=== PATIENT | female | born 1980 | race African-American/Black ===

== ENCOUNTER → 2016-11-01 | Outpatient (CLI) | payer OTHER ==
--- NOTE | 2016-11-01 12:49 | RAD ---
Indication pain. Grayscale color Doppler and spectral imaging was performed. Examination was targeted to the veins of the left lower extremity. The common femoral, femoral and popliteal veins appeared normal. No thrombus was seen. Visualized calf veins appeared unremarkable. The right common femoral vein appeared normal. IMPRESSION: Negative left lower extremity venous analysis for DVT
== END | disposition home or self-care (01) ==
LOC: US 11:44
PROVIDERS: ATTEND Family Medicine
DX: M79.672 Pain in left foot (principal); R60.0 Localized edema; M79.89 Other specified soft tissue disorders
CPT/HCPCS: 93971

== ENCOUNTER 2018-02-02 23:38 | Emergency (ER) | payer OTHER ==
[~2018-02-02] VITALS: Ht 152.4 cm; Wt 106.1 kg
[2018-02-03] MEDS ORDERED: IV NORMAL SALINE 1,000ML 1,000 ML IV SCH (00:28)
[2018-02-03] MEDS ORDERED: KETOROLAC 30 MG/ML VIAL. IV ONE (00:30)
[2018-02-03] MEDS ORDERED: PROCHLORPERAZINE 10 MG/2 ML VIAL. IV ONE (00:30)
[2018-02-03] MEDS ORDERED: diphenhydrAMINE 50 MG/ML VIAL IVP ONE (00:30)
[2018-02-03 01:53] LABS: BASO # 0.1 x10^3/uL (0.0-0.2); BASO % 1 % (0-3); EOS # 0.1 x10^3/uL (0.0-0.7); EOS % 1 % (0-3); HEMATOCRIT 36.6 % (36.0-47.0); HEMOGLOBIN 12.1 g/dL (12.0-15.5); LYMPH # 2.3 x10^3/uL (1.0-4.8); LYMPH % 43 % (24-48); MEAN CORPUSCULAR HEMOGLOBIN 27 pg (25-35); MEAN CORPUSCULAR HGB CONC 33 g/dL (31-37); MEAN CORPUSCULAR VOLUME 82 fL (79-100); MONO # 0.7 x10^3/uL (0.0-1.1); MONO % 13 % (0-9); NEUT # 2.2 x10^3uL (1.8-7.7); NEUT % 42 % (31-73); PLATELET COUNT 310 x10^3/uL (140-400); RED BLOOD COUNT 4.44 x10^6/uL (3.50-5.40); RED CELL DISTRIBUTION WIDTH 14.6 % (11.5-14.5); WHITE BLOOD COUNT 5.4 x10^3/uL (4.0-11.0)
[2018-02-03 01:57] LABS: BACTERIA,URINE 0 /HPF (0-FEW); BILIRUBIN,URINE NEG (NEG); CLARITY,URINE CLEAR; COLOR,URINE YELLOW; GLUCOSE,URINE NEG (NEG); NITRITE,URINE NEG (NEG); RBC,URINE 0 /HPF (0-2); SQUAMOUS EPITHELIAL CELL,UR FEW /LPF; UROBILINOGEN,URINE 1 mg/dL (0.2 mg/dL); WBC,URINE OCC /HPF (0-4)
[2018-02-03 01:59] LABS: CALCIUM 8.4 mg/dL (8.5-10.1); GFR 76.3; MAGNESIUM 1.8 mg/dL (1.8-2.4)
[2018-02-03 02:30] VITALS: BP 138/94
[2018-02-03] MEDS ORDERED: BUTA1TAB23 PO (02:36)
--- NOTE | 2018-02-03 02:36 | PHYS DOC ---
Adult General Chief Complaint Chief Complaint: HEADACHE HPI HPI Patient is a 37 year old female who presents with complaint of headache and dizziness. Patient states that her headache started approximately 2 days ago. Patient states that she has history of migraine headaches and states her symptoms feel similar to previous migraine headaches. Patient states however she has been having slight increase and lightheadedness over the past day. Patient denies any associated fever. Patient states that she has been taking Excedrin Migraine at home with improvement symptoms. The patient states that her headache is still present but is better today compared to onset. Patient however does continue to have lightheadedness. Patient denies any other significant past medical history. Patient came to the emergency department for further evaluation and treatment of her headache and dizziness. Review of Systems Review of Systems Constitutional: Denies fever or chills [] Eyes: Denies change in visual acuity, redness, or eye pain [] HENT: Denies nasal congestion or sore throat [] Respiratory: Denies cough or shortness of breath [] Cardiovascular: Denies chest pain or edema[] GI: Denies abdominal pain, nausea, vomiting, bloody stools or diarrhea [] : Denies dysuria or hematuria [] Musculoskeletal: Denies back pain or joint pain [] Integument: Denies rash or skin lesions [] Neurologic: Headache, lightheadedness, denies focal weakness or sensory changes [] All other systems were reviewed and found to be within normal limits, except as documented in this note. Current Medications Current Medications Current Medications Medications (Trade) Dose Ordered Sig/Prakash Start Time Stop Time Status Last Admin Dose Admin Diphenhydramine HCl (Benadryl) 25 mg 1X ONCE 02/03/18 00:30 02/03/18 02:02 DC 02/03/18 01:40 25 MG Ketorolac Tromethamine (Toradol 30mg Vial) 30 mg 1X ONCE 02/03/18 00:30 02/03/18 02:02 DC 02/03/18 01:40 30 MG Prochlorperazine Edisylate (Compazine) 10 mg 1X ONCE 02/03/18 00:30 02/03/18 02:02 DC 02/03/18 01:40 10 MG Sodium Chloride 1,000 ml @ 1,000 mls/hr Q1H 02/03/18 00:28 02/03/18 02:02 DC 02/03/18 01:41 1,000 MLS/HR Allergies Allergies Allergies Coded Allergies Type Severity Reaction Last Updated Verified No Known Drug Allergies 02/03/18 No Physical Exam Physical Exam Constitutional: Alert, afebrile, appears in mild discomfort. [] HENT: Normocephalic, atraumatic, bilateral external ears normal, oropharynx moist, no oral exudates, nose normal. [] Eyes: PERRLA, EOMI, conjunctiva normal, no discharge. [] Neck: Normal range of motion, no tenderness, supple, no stridor. [] Cardiovascular:Heart rate regular rhythm, no murmur [] Lungs & Thorax: Bilateral breath sounds clear to auscultation [] Abdomen: Bowel sounds normal, soft, no tenderness, no masses, no pulsatile masses. [] Skin: Warm, dry, no erythema, no rash. [] Back: No tenderness, no CVA tenderness. [] Extremities: No tenderness, no cyanosis, no clubbing, ROM intact, no edema. [] Neurologic: Alert and oriented X 3, normal motor function, normal sensory function, no focal deficits noted. [] Current Patient Data Vital Signs Vital Signs Date Time Temp Pulse Resp B/P (MAP) Pulse Ox O2 Delivery O2 Flow Rate FiO2 02/03/18 01:15 97.7 68 18 98 Room Air Lab Results Laboratory Tests Test 02/03/18 00:05 02/03/18 00:40 02/03/18 01:20 Urine Collection Type Unknown Urine Color Yellow Urine Clarity Clear Urine pH 7.5 Urine Specific [place] 1.020 Urine Protein Neg (NEG-TRACE) Urine Glucose (UA) Neg mg/dL (NEG) Urine Ketones (Stick) Neg mg/dL (NEG) Urine Blood Neg (NEG) Urine Nitrite Neg (NEG) Urine Bilirubin Neg (NEG) Urine Urobilinogen Dipstick 1 mg/dL (0.2 mg/dL) Urine Leukocyte Esterase Neg (NEG) Urine RBC 0 /HPF (0-2) Urine WBC Occ /HPF (0-4) Urine Squamous Epithelial Cells Few /LPF Urine Bacteria 0 /HPF (0-FEW) POC Urine HCG, Qualitative hcg negative (Negative) White Blood Count 5.4 x10^3/uL (4.0-11.0) Red Blood Count 4.44 x10^6/uL (3.50-5.40) Hemoglobin 12.1 g/dL (12.0-15.5) Hematocrit 36.6 % (36.0-47.0) Mean Corpuscular Volume 82 fL (79-100) Mean Corpuscular Hemoglobin 27 pg (25-35) Mean Corpuscular Hemoglobin Concent 33 g/dL (31-37) Red Cell Distribution Width 14.6 % (11.5-14.5) H Platelet Count 310 x10^3/uL (140-400) Neutrophils (%) (Auto) 42 % (31-73) Lymphocytes (%) (Auto) 43 % (24-48) Monocytes (%) (Auto) 13 % (0-9) H Eosinophils (%) (Auto) 1 % (0-3) Basophils (%) (Auto) 1 % (0-3) Neutrophils # (Auto) 2.2 x10^3uL (1.8-7.7) Lymphocytes # (Auto) 2.3 x10^3/uL (1.0-4.8) Monocytes # (Auto) 0.7 x10^3/uL (0.0-1.1) Eosinophils # (Auto) 0.1 x10^3/uL (0.0-0.7) Basophils # (Auto) 0.1 x10^3/uL (0.0-0.2) Sodium Level 140 mmol/L (136-145) Potassium Level 4.0 mmol/L (3.5-5.1) Chloride Level 106 mmol/L (98-107) Carbon Dioxide Level 26 mmol/L (21-32) Anion Gap 8 (6-14) Blood Urea Nitrogen 15 mg/dL (7-20) Creatinine 1.0 mg/dL (0.6-1.0) Estimated GFR (Cockcroft-Gault) 76.3 Glucose Level 102 mg/dL (70-99) H Calcium Level 8.4 mg/dL (8.5-10.1) L Magnesium Level 1.8 mg/dL (1.8-2.4) EKG EKG Not performed[] Radiology/Procedures Radiology/Procedures Not performed[] Course & Med Decision Making Course & Med Decision Making Pertinent Labs and Imaging studies reviewed. (See chart for details) The patient's exam is benign. The patient was given IV fluids, Compazine, Toradol, and Benadryl with significant improvement symptoms. The patient is appropriate for outpatient follow-up. Advised follow-up with Dr. Newsome in 2 days for reevaluation and return to emergency department for any worsening symptoms. Patient was understanding and in agreement with treatment plan. Dragon Disclaimer Dragon Disclaimer This electronic medical record was generated, in whole or in part, using a voice recognition dictation system. Departure Departure: Impression: Primary Impression: Migraine headache Disposition: HOME, SELF-CARE Condition: IMPROVED Referrals: DANIS NEWSOME MD (PCP) Patient Instructions: Migraine Headache Additional Instructions: Follow-up with Dr. Newsome in the next 2 days for reevaluation. Return to the emergency department for any worsening symptoms. Scripts Butalb/Acetaminophen/Caffeine ([id number] 50-325-40) 1 Each Tablet 1-2 EACH PO Q4-6HRS PRN for HEADACHE, #30 TAB Prov: CAIT GREENE MD 02/03/18 Problem Qualifiers Primary Impression: Migraine headache Migraine type: without aura Status migrainosus presence: without status migrainosus Intractability: not intractable Qualified Codes: G43.009 - Migraine without aura, not intractable, without status migrainosus CAIT GREENE MD Feb 03, 2018 02:36
== END 2018-02-03 02:50 | disposition home or self-care (01) ==
LOC: ER 23:38
DX: G43.909 Migraine, unspecified, not intractable, without status migrainosus (principal); R42 Dizziness and giddiness
CPT/HCPCS: 36415; 80048; 81001; 81025; 83735; 85025; 96374; 96375; 99284; J0780; J1200; J1885; J7030

== ENCOUNTER 2018-05-07 15:13 | Emergency (ER) | payer OTHER ==
[~2018-05-07] VITALS: Ht 152.4 cm; Wt 108.0 kg
[~2018-05-07 15:13] MED LIST: BUTA1TAB23 PO
[2018-05-07] MEDS ORDERED: IPRATRPIUM/ALBUTEROL 0.5/2.5MG 3 ML NEBU. NEB ONE (15:30)
[2018-05-07] MEDS ORDERED: predniSONE 10 MG TABLET PO ONE (15:30)
--- NOTE | 2018-05-07 15:31 | PHYS DOC ---
Past History Past Medical History: Asthma Past Surgical History: Alcohol Use: None Drug Use: None Adult General Chief Complaint Chief Complaint: ASTHMA HPI HPI Patient is a 37 year old female who presents with cough and shortness of breath. This feels like patient's previous asthma exacerbations. This is been going on for the past 2 days. This was triggered by an upper respiratory infection going on for the past several days. Patient is getting limited relief with her home inhalers. Patient does have a nebulizer available at home but has run out of medication for it. Patient denies any fever. Reports some postnasal drainage. Denies any PE risk factors. Denies any lower extremity swelling. Denies any chest pain or palpitations. Laying flat as well as exertion makes the breathing worse. Inhalers and rest make it better. [] Review of Systems Review of Systems Constitutional: Denies fever or chills [] Eyes: Denies change in visual acuity, redness, or eye pain [] HENT: See history of present illness[] Respiratory: See history of present illness[] Cardiovascular: No chest pain or palpitations[] GI: Denies abdominal pain, nausea, vomiting, bloody stools or diarrhea [] : Denies dysuria or hematuria [] Musculoskeletal: Denies back pain or joint pain [] Integument: Denies rash or skin lesions [] Neurologic: Denies headache, focal weakness or sensory changes [] Endocrine: Denies polyuria or polydipsia [] All other systems were reviewed and found to be within normal limits, except as documented in this note. Allergies Allergies Allergies Coded Allergies Type Severity Reaction Last Updated Verified No Known Drug Allergies 02/03/18 No Physical Exam Physical Exam Constitutional: Well developed, well nourished, no acute distress, non-toxic appearance. [] HENT: Normocephalic, atraumatic, bilateral external ears normal, oropharynx moist, no oral exudates, nose with clear rhinorrhea, posterior oral pharyngeal streaking is present. [] Eyes: PERRLA, EOMI, conjunctiva normal, no discharge. [] Neck: Normal range of motion, no tenderness, supple, no stridor. [] Cardiovascular:Heart rate regular rhythm, no murmur [] Lungs & Thorax: Bilateral breath sounds clear to auscultation [] Abdomen: Bowel sounds normal, soft, no tenderness, no masses, no pulsatile masses. [] Skin: Warm, dry, no erythema, no rash. [] Back: No tenderness, no CVA tenderness. [] Extremities: No tenderness, no cyanosis, no clubbing, ROM intact, no edema. [] Neurologic: Alert and oriented X 3, normal motor function, normal sensory function, no focal deficits noted. [] Psychologic: Affect normal, judgement normal, mood normal. [] EKG EKG [] Radiology/Procedures Radiology/Procedures [] Course & Med Decision Making Course & Med Decision Making Pertinent Labs and Imaging studies reviewed. (See chart for details) ED course: Patient arrived, was placed in the, tolerated exam well. Patient had a breathing treatment administered and felt better after the breathing treatment. She continued to have clear lung sounds, and oxygen saturation 99-100 %. Patient's partner came out and was concerned because she had constipation for which she took milk of magnesia and had some success with that however he doesn' t feel that it was enough. Patient had a recent home test that was positive. Patient denies any nausea or vomiting on repeat questioning.[] Dragon Disclaimer Dragon Disclaimer This electronic medical record was generated, in whole or in part, using a voice recognition dictation system. Departure Departure: Impression: Primary Impression: Upper respiratory infection Additional Impressions: Asthma exacerbation Constipation Disposition: 01 HOME, SELF-CARE Condition: GOOD Referrals: DANIS CHIU MD (PCP) Follow-up in 2 days. Patient Instructions: Asthma, Acute Bronchospasm, Constipation, Adult, , Upper Respiratory Infection, Adult Additional Instructions: Drink plenty of fluids. Eat a high-fiber diet that has fresh fruits and vegetables. At a serial with "fiber" or "bran" in the name. Follow-up with your regular doctor in 2 days. Return to the ER if worsening difficulty breathing or any other concerns. Scripts D-Methorphan Hb/Prometh Hcl (PROMETHAZINE-DM SYRUP) 118 Ml Syrup 5 ML PO PRN Q4HRS for cough/congestion, #120 ML Prov: BETTY LINDSAY DO 05/07/18 Ipratropium [place] (IPRATROPIUM BROMIDE) 0.2 Mg/1 Ml Solution 1 VIAL NEB QID for shortness of breath, #1 BOT 0 Refills Prov: BETTY LINDSAY DO 05/07/18 Albuterol Sulfate (ALBUTEROL SULFATE NEB SOLN ) 2.5 Mg/3 Ml Vial.neb 1 VIAL NEB PRN Q4HRS for asthma, #50 VIAL Prov: ANGÉLICABETTY OWUSU 05/07/18 Problem Qualifiers Primary Impression: Upper respiratory infection URI type: unspecified URI Qualified Codes: J06.9 - Acute upper respiratory infection, unspecified Additional Impressions: Asthma exacerbation Asthma severity: mild Asthma persistence: intermittent Qualified Codes: J45.21 - Mild intermittent asthma with (acute) exacerbation Constipation Constipation type: unspecified constipation type Qualified Codes: K59.00 - Constipation, unspecified BETTY LINDSAY DO May 07, 2018 15:31
[2018-05-07] MEDS ORDERED: IPRA0.2S5 NEB (16:04)
[2018-05-07] MEDS ORDERED: D-ME118S2 PO (16:04)
[2018-05-07] MEDS ORDERED: ALBU2.5V5 NEB (16:04)
[2018-05-07 16:05] VITALS: BP 116/63
== END 2018-05-07 16:06 | disposition home or self-care (01) ==
LOC: ER 15:13
DX: J45.21 Mild intermittent asthma with (acute) exacerbation (principal); J06.9 Acute upper respiratory infection, unspecified; K59.00 Constipation, unspecified
CPT/HCPCS: 94640; 99283; J7512; J7620

== ENCOUNTER 2019-02-13 00:25 | Emergency (ER) | payer OTHER, MEDICAID ==
[~2019-02-13] VITALS: Ht 157.5 cm; Wt 106.9 kg
[~2019-02-13 00:25] MED LIST changes: +ALBU2.5V5 NEB; +IPRA0.2S5 NEB; +PROM118S9 PO
[2019-02-13] MEDS ORDERED: ALBU2.5V8 IH (00:57)
[2019-02-13] MEDS ORDERED: PROM118S9 PO (00:57)
[2019-02-13] MEDS ORDERED: AMOX500T PO (00:57)
--- NOTE | 2019-02-13 00:57 | PHYS DOC ---
Past History Past Medical History: Asthma Past Surgical History: Alcohol Use: None Drug Use: None Adult General Chief Complaint Chief Complaint: SHORTNESS OF BREATH HPI HPI Patient is a 38-year-old female presents with nasal congestion for the past 2 days and cough for the past day. No relief with his Zicam. No nausea or vomiting. Nonproductive cough. Subjective fever, no home temperature was taken. No significant relief with the nasal congestion with Afrin area nothing makes the symptoms better or worse. Symptoms are moderate in intensity.[] Review of Systems Review of Systems Constitutional: History of present illness[] Eyes: Denies change in visual acuity, redness, or eye pain [] HENT: See history of present illness[] Respiratory: Denies shortness of breath, see history of present illness [] Cardiovascular: No chest pain or palpitations[] GI: Denies abdominal pain, nausea, vomiting, bloody stools or diarrhea [] : Denies dysuria or hematuria [] Musculoskeletal: Denies back pain or joint pain [] Integument: Denies rash or skin lesions [] Neurologic: Denies headache, focal weakness or sensory changes [] Endocrine: Denies polyuria or polydipsia [] All other systems were reviewed and found to be within normal limits, except as documented in this note. Allergies Allergies Allergies Coded Allergies Type Severity Reaction Last Updated Verified No Known Drug Allergies 02/03/18 No Physical Exam Physical Exam Constitutional: Well developed, well nourished, no acute distress, non-toxic appearance. [] HENT: Normocephalic, atraumatic, bilateral external ears normal, oropharynx moist, no oral exudates, nose normal. [] Eyes: PERRLA, EOMI, conjunctiva normal, no discharge. [] Neck: Normal range of motion, no tenderness, supple, no stridor. [] Cardiovascular:Heart rate regular rhythm, no murmur [] Lungs & Thorax: Bilateral breath sounds clear to auscultation [] Abdomen: Bowel sounds normal, soft, no tenderness, no masses, no pulsatile masses. [] Skin: Warm, dry, no erythema, no rash. [] Back: No tenderness, no CVA tenderness. [] Extremities: No tenderness, no cyanosis, no clubbing, ROM intact, no edema. [] Neurologic: Alert and oriented X 3, normal motor function, normal sensory function, no focal deficits noted. [] Psychologic: Affect normal, judgement normal, mood normal. [] EKG EKG [] Radiology/Procedures Radiology/Procedures [] Course & Med Decision Making Course & Med Decision Making Pertinent Labs and Imaging studies reviewed. (See chart for details) Medical decision making: Patient appears to have an upper respiratory infection. No evidence of systemic toxicity. Lungs are clear to auscultation, no evidence of asthma exacerbation, pneumonia, pneumothorax. We will attempt outpatient treatment. Discussed findings with patient who voiced understanding. All questions were answered. She was discharged in improved condition.[] Dragon Disclaimer Dragon Disclaimer This electronic medical record was generated, in whole or in part, using a voice recognition dictation system. Departure Departure: Impression: Primary Impression: Upper respiratory infection Disposition: HOME, SELF-CARE Condition: IMPROVED Referrals: DANIS CHIU MD (PCP) Follow-up in 2 days Patient Instructions: Upper Respiratory Infection, Adult Additional Instructions: Drink plenty fluids. Follow-up with your regular doctor in 2 days. Return to the ER if worsening difficulty breathing or any other concerns. Scripts D-Methorphan Hb/Prometh Hcl (PROMETHAZINE-DM SYRUP) 118 Ml Syrup 5 ML PO PRN Q4HRS for CONGESTION, #120 ML Prov: BETTY LINDSAY DO 02/13/19 Amoxicillin (AMOXICILLIN) 500 Mg Tablet 500 MG PO TID for CUGH for 10 Days, #30 TAB Prov: BETTY LINDSAY DO 02/13/19 Albuterol Sulfate (VENTOLIN HFA INHALER) 18 Gm Hfa.aer.ad 2 PUFF IH PRN Q4HRS PRN for FOR ASTHMA, #1 INHALER 0 Refills Prov: BETTY LINDSAY DO 02/13/19 Problem Qualifiers Primary Impression: Upper respiratory infection URI type: unspecified URI Qualified Codes: J06.9 - Acute upper respiratory infection, unspecified BETTY LINDSAY DO Feb 13, 2019 00:57
[2019-02-13 01:30] VITALS: BP 141/80
== END 2019-02-13 00:59 | disposition home or self-care (01) ==
LOC: ER 00:25
DX: J06.9 Acute upper respiratory infection, unspecified (principal); J45.909 Unspecified asthma, uncomplicated
CPT/HCPCS: 99283

== ENCOUNTER 2019-06-03 18:51 | Emergency (ER) | payer OTHER, MEDICAID ==
[~2019-06-03] VITALS: Ht 152.4 cm; Wt 102.1 kg
[~2019-06-03 18:51] MED LIST changes: +ALBU2.5V8 IH; +AMOX500T PO
[2019-06-03 18:59] VITALS: BP 131/84
--- NOTE | 2019-06-03 19:27 | RAD ---
EXAM: PA and Lateral Views of the Chest DATE: 06/03/2019 7:02 PM INDICATION: Cough, congestion COMPARISON: No Prior FINDINGS: The heart is not enlarged. Mediastinal and hilar contours are normal. No focal parenchymal airspace opacity. No pleural effusion or pneumothorax. IMPRESSION: 1. No radiographic evidence for acute cardiopulmonary process. Electronically signed by: Norberto Bonner MD (06/03/2019 7:24 PM) [facility]
[2019-06-03] MEDS ORDERED: ALBUTEROL SULFATE 2.5 MG/3 ML NEBU. NEB ONE (19:30)
--- NOTE | 2019-06-03 19:32 | PHYS DOC ---
Past History Past Medical History: Asthma Past Surgical History: , Tubal ligation Alcohol Use: None Drug Use: None Adult General Chief Complaint Chief Complaint: COUGH HPI HPI 38-year-old female presents with cough and body aches. She has an intermittent cough at baseline, but she is having increased coughing the last 2 days. She has also developed generalized body aches and nasal congestion. She does not believe she is having fever. She has used her albuterol MDI twice today. She has mild intermittent asthma. She wanted to make sure she doesn't have influenza. Review of Systems Review of Systems Constitutional: Denies fever or chills [] Eyes: Denies change in visual acuity, redness, or eye pain [] HENT: Nasal congestion[] Respiratory: Cough without shortness of breath [] Cardiovascular: No additional information not addressed in HPI [] GI: Denies abdominal pain, nausea, vomiting, bloody stools or diarrhea [] : Denies dysuria or hematuria [] Musculoskeletal: Denies back pain or joint pain [] Integument: Denies rash or skin lesions [] Neurologic: Denies headache, focal weakness or sensory changes [] Endocrine: Denies polyuria or polydipsia [] All other systems were reviewed and found to be within normal limits, except as documented in this note. Current Medications Current Medications Current Medications Medications (Trade) Dose Ordered Sig/Prakash Start Time Stop Time Status Last Admin Dose Admin Albuterol Sulfate (Ventolin) 2.5 mg 1X ONCE 06/03/19 19:30 06/03/19 19:31 UNV Allergies Allergies Allergies Coded Allergies Type Severity Reaction Last Updated Verified No Known Drug Allergies 02/03/18 No Physical Exam Physical Exam Constitutional: Well developed, well nourished, no acute distress, non-toxic appearance. [] HENT: Normocephalic, atraumatic, bilateral external ears normal, oropharynx moist, no oral exudates, nose congested[] Eyes: PERRLA, EOMI, conjunctiva normal, no discharge. [] Neck: Normal range of motion, no tenderness, supple, no stridor. [] Cardiovascular:Heart rate regular rhythm, no murmur [] Lungs & Thorax: Bilateral breath sounds diminished but clear to auscultation [] Abdomen: Bowel sounds normal, soft, no tenderness, no masses, no pulsatile masses. [] Skin: Warm, dry, no erythema, no rash. [] Back: No tenderness, no CVA tenderness. [] Extremities: No tenderness, no cyanosis, no clubbing, ROM intact, no edema. [] Neurologic: Alert and oriented X 3, normal motor function, normal sensory function, no focal deficits noted. [] Psychologic: Affect normal, judgement normal, mood normal. [] Current Patient Data Vital Signs Vital Signs Date Time Temp Pulse Resp B/P (MAP) Pulse Ox O2 Delivery O2 Flow Rate FiO2 06/03/19 18:59 99.3 96 22 99 Room Air EKG EKG [] Radiology/Procedures Radiology/Procedures [] Impressions: EXAM: PA and Lateral Views of the Chest DATE: 06/03/2019 7:02 PM INDICATION: Cough, congestion COMPARISON: No Prior FINDINGS: The heart is not enlarged. Mediastinal and hilar contours are normal. No focal parenchymal airspace opacity. No pleural effusion or pneumothorax. IMPRESSION: 1. No radiographic evidence for acute cardiopulmonary process. Electronically signed by: Norberto Bonner MD (06/03/2019 7:24 PM) [facility] DICTATED AND SIGNED BY: NORBERTO BONNER MD DATE: 06/03/191923 CC: JIM TOMAS DO; DANIS CHIU MD ~ Course & Med Decision Making Course & Med Decision Making Pertinent Labs and Imaging studies reviewed. (See chart for details) The patient rapid influenza is negative. Her chest x-ray does not show p neumonia. This appears to be a viral URI with cough. I have advised supportive care. Patient was given a breathing treatment in the ED with minimal improvement. The patient is stable for discharge at this time. [] Dragon Disclaimer Dragon Disclaimer This electronic medical record was generated, in whole or in part, using a voice recognition dictation system. Departure Departure: Impression: Primary Impression: Viral URI with cough Disposition: HOME, SELF-CARE Condition: STABLE Referrals: DANIS CHIU MD (PCP) Patient Instructions: Upper Respiratory Infection, Adult, [id number] JIM TOMAS DO Jun 03, 2019 19:31
[2019-06-03 19:56] LABS: INFLUENZA A PATIENT NEGATIVE (NEGATIVE); INFLUENZA B PATIENT NEGATIVE (NEGATIVE)
== END 2019-06-03 20:17 | disposition home or self-care (01) ==
LOC: ER 18:51
DX: J06.9 Acute upper respiratory infection, unspecified (principal); B97.89 Other viral agents as the cause of diseases classified elsewhere; J45.909 Unspecified asthma, uncomplicated
CPT/HCPCS: 71046; 87804; 94640; 99285; J7613

== ENCOUNTER 2020-04-16 20:12 | Emergency (ER) | payer OTHER, MEDICAID ==
[~2020-04-16] VITALS: Ht 157.5 cm; Wt 107.8 kg
[~2020-04-16 20:12] MED LIST changes: +PROM118S10 PO; -PROM118S9 PO
[2020-04-16 20:20] VITALS: BP 158/85
[2020-04-16] MEDS ORDERED: TOBR5DRO6 RIGHTEYE (20:26)
--- NOTE | 2020-04-16 20:26 | PHYS DOC ---
Past History Past Medical History: Asthma (CRISSY MCCORMACK APRN) Past Surgical History: , Tubal ligation (CRISSY MCCORMACK APRN) Alcohol Use: None Drug Use: None (CRISSY MCCORMACK APRN) Adult General Chief Complaint Chief Complaint: EYE PROBLEMS HPI HPI Patient is a 39 year old female who presents with right eye redness, yellow drainage, symptoms began this morning. Denies any vision loss. (CRISSY MCCORMACK APRN) Review of Systems Review of Systems Constitutional: Denies fever or chills [] Eyes: Reports right eye redness, yellow drainage. Denies change in visual acuity, redness, or eye pain [] Musculoskeletal: Denies back pain or joint pain [] Integument: Denies rash or skin lesions [] Neurologic: Denies headache, focal weakness or sensory changes [] All other systems were reviewed and found to be within normal limits, except as documented in this note. (CRISSY MCCORMACK APRN) Allergies Allergies Allergies Coded Allergies Type Severity Reaction Last Updated Verified No Known Drug Allergies 02/03/18 No (CRISSY MCCORMACK APRN) Physical Exam Physical Exam Constitutional: Well developed, well nourished, no acute distress, non-toxic appearance. []] Eyes: PERRLA, EOMI, right conjunctive is mildly injected, there is yellow crusty drainage around the eyelashes Skin: Warm, dry, no erythema, no rash. [] Back: No tenderness, no CVA tenderness. [] Extremities: No tenderness, no cyanosis, no clubbing, ROM intact, no edema. [] Neurologic: Alert and oriented X 3, normal motor function, normal sensory function, no focal deficits noted. [] Psychologic: Affect normal, judgement normal, mood normal. [] (CRISSY MCCORMACK APRN) EKG EKG [] (CRISSY MCCORMACK APRN) Radiology/Procedures Radiology/Procedures [] (CRISSY MCCORMACK APRN) Heart Score Risk Factors: Risk Factors: DM, Current or recent (<one month) smoker, HTN, HLP, family history of CAD, obesity. Risk Scores: Risk Factors: DM, Current or recent (<one month) smoker, HTN, HLP, family history of CAD, obesity. (CRISSY MCCORMACK APRN) Course & Med Decision Making Course & Med Decision Making Pertinent Labs and Imaging studies reviewed. (See chart for details) This is a 39-year-old female patient presenting to the ED today with right eye bacterial conjunctivitis. Discharged on tobramycin. Importance of good hand hygiene emphasized. Provided return precautions. (CRISSY MCCORMACK APRN) Course & Med Decision Making I agreed with treatment plan. Patient medically stable. (SOHAM SPARKS DO) Dragon Disclaimer Dragon Disclaimer This electronic medical record was generated, in whole or in part, using a voice recognition dictation system. (CRISSY MCCORMACK APRN) Departure Departure: Impression: Primary Impression: Bacterial conjunctivitis of right eye Disposition: 01 DC HOME SELF CARE/HOMELESS Condition: STABLE Referrals: DANIS CHIU MD (PCP) Follow-up in 1-2 weeks Patient Instructions: Bacterial Conjunctivitis, [id number] Additional Instructions: You have bacterial conjunctivitis of the right eye. Use the prescribed medication as ordered. Maintain good and hygiene. Follow-up with your own doctor or the hvac sales representative in 1 to 2 weeks if symptoms persist. Scripts Tobramycin (TOBRAMYCIN) 5 Ml Drops 1 DROP RIGHTEYE QID for 7 Days, #5 ML 0 Refills Prov: CRISSY MCCORMACK APRN 04/16/20 CRISSY MCCORMACK APRN Apr 16, 2020 20:26 SOHAM SPARKS DO Apr 17, 2020 01:22
== END 2020-04-16 20:26 | disposition home or self-care (01) ==
LOC: ER 20:12
DX: H10.89 Other conjunctivitis (principal); J45.909 Unspecified asthma, uncomplicated
CPT/HCPCS: 99283

== ENCOUNTER 2020-09-27 21:47 | Emergency (ER) | payer OTHER, MEDICAID ==
[~2020-09-27] VITALS: Ht 154.9 cm; Wt 110.5 kg
[~2020-09-27 21:47] MED LIST changes: +TOBR5DRO6 RIGHTEYE
--- NOTE | 2020-09-27 22:06 | PHYS DOC ---
Past History Past Medical History: Asthma Past Surgical History: , Tubal ligation Alcohol Use: None Drug Use: None General Adult HPI: HPI: "... I was helping my dad... and I jumped off his trailer... and I marlo landed wrong..and heard a load pop in my Lt knee..and then I had severe pain in it... this all happened about 3 pm..and I am still hurting bad..." Patient is a 40 year old female who presents with left knee injury that occurred while jumping off of a trailer at approximately 1500 hrs. Patient's has marked edema to the left knee. No upper leg tenderness and no lower leg tenderness. Pain is localized in the knee itself. Straight leg lift is painful. Anterior draw increases pain. Collateral ligaments appear relatively stable. Posterior stresses are not particularly tender. Patient is able to do straight leg lift with pain. Distal neurovascular is equal to right leg. Patient denies previous injury to left knee. No recent travel. No sick ill contacts. Normally follows with Dr. Chiu. Review of Systems: Review of Systems: Constitutional: Denies fever or chills Eyes: Denies change in visual acuity HENT: Denies nasal congestion or sore throat Respiratory: Denies cough or shortness of breath Cardiovascular: Denies chest pain or edema GI: Denies abdominal pain, nausea, vomiting, bloody stools or diarrhea : Denies dysuria Musculoskeletal: Complains of severe left knee pain Integument: Denies rash Neurologic: Denies headache, focal weakness or sensory changes Endocrine: Denies polyuria or polydipsia Lymphatic: Denies swollen glands Psychiatric: Denies depression or anxiety Family History: Family History: Noncontributory to presentation Current Medications: Current Meds: See nursing for home meds Allergies: Allergies: Allergies Coded Allergies Type Severity Reaction Last Updated Verified No Known Drug Allergies 02/03/18 No Physical Exam: PE: Constitutional:in acute distress, non-toxic appearance. [] HENT: Normocephalic, atraumatic, bilateral external ears normal, oropharynx moist, no oral exudates, nose normal. [] Eyes: PERRLA, EOMI, conjunctiva normal, no discharge. [] Neck: Normal range of motion, no tenderness, supple, no stridor. [] Cardiovascular:Heart rate regular rhythm, no murmur [] Lungs & Thorax: Bilateral breath sounds clear to auscultation [] Abdomen: Bowel sounds normal, soft, no tenderness, no masses, no pulsatile m asses. Obese. Skin: Warm, dry, no erythema, no rash. [] Back: No tenderness, no CVA tenderness. [] Extremities: No tenderness, no cyanosis, no clubbing, ROM intact, no edema. [] Except findings in left knee as per HPI Neurologic: Alert and oriented X 3, normal motor function, normal sensory funct ion, no focal deficits noted. [] Psychologic: Affect anxious, judgement normal, mood normal. [] EKG: EKG: [] Radiology/Procedures: Radiology/Procedures: [address] [address] IMAGING REPORT Signed PATIENT: STEPHANY HOGAN ACCOUNT: [id number] : 1980 LOCATION: ER AGE: 40 SEX: F EXAM STATUS: REG ER ORD. PHYSICIAN: ROGER VAUGHN MD REASON: knee injury, JUMPED OFF A TRAILER AT 3pm TODAY PROCEDURE: KNEE LEFT 4V Study: XR KNEE _4 VIEWS WITH PATELLA_LT Indication: Injury. Comparison: None. Findings: No displaced fracture. Alignment is within normal limits. Maintained femorotibial compartment joint space height. On the axial view slight irregularity at the medial patella but without any abnormality on the additional images to suggest a nondisplaced fracture. No large knee joint effusion is apparent noting obliquity on the lateral view. Small quadriceps insertion enthesophyte. Impression: No displaced fracture or traumatic malalignment. Electronically signed by: IVETH ALLEN MD (09/27/2020 11:41 PM) [facility] DICTATED AND SIGNED BY: IVETH ALLEN MD DATE: 09/27/20 233 CC: DANIS CHIU MD; ROGER VAUGHN MD ~MTH0 0 [][address] [address] IMAGING REPORT Signed PATIENT: STEPHANY HOGAN ACCOUNT: [id number] : 1980 LOCATION: ER AGE: 38 SEX: F EXAM STATUS: REG ER ORD. PHYSICIAN: JIM TOMAS DO REASON: Congestion, cough PROCEDURE: CHEST PA & LATERAL EXAM: PA and Lateral Views of the Chest DATE: 06/03/2019 7:02 PM INDICATION: Cough, congestion COMPARISON: No Prior FINDINGS: The heart is not enlarged. Mediastinal and hilar contours are normal. No focal parenchymal airspace opacity. No pleural effusion or pneumothorax. IMPRESSION: 1. No radiographic evidence for acute cardiopulmonary process. Electronically signed by: Norberto Rich MD (06/03/2019 7:24 PM) [facility] DICTATED AND SIGNED BY: NORBERTO RICH MD DATE: 06/03/191923 CC: JIM TOMAS DO; DANIS CHIU MD ~ Heart Score: C/O Chest Pain: N/A Risk Factors: Risk Factors: DM, Current or recent (<one month) smoker, HTN, HLP, family history of CAD, obesity. Risk Scores: Score 0 - 3: 2.5% MACE over next 6 weeks - Discharge Home Score 4 - 6: 20.3% MACE over next 6 weeks - Admit for Clinical Observation Score 7 - 10: 72.7% MACE over next 6 weeks - Early Invasive Strategies Course & Med Decision Making: Course & Med Decision Making Pertinent Labs and Imaging studies reviewed. (See chart for details) Patient aware Bro wrap. Elevate leg. Rest. Use crutches. Take Tylenol and ibuprofen for pain. For marked pain may take Vicoprofen up to 4 times a day. Follow-up with Dr. Chiu. Follow-up with orthopedics. Distal neurovascular intact after application Bro wrap. Consider edita-ray in 2 weeks if still marked tenderness if he has not followed up with orthopedics by then. Impression: 1. Sprain strain left knee 2. Suspect ACL tear or strain [] Dragon Disclaimer: Herman Disclaimer: This electronic medical record was generated, in whole or in part, using a voice recognition dictation system. Departure Departure: Referrals: DANIS CHIU MD (PCP) Scripts Hydrocodone/Ibuprofen (HYDROCODONE-IBUPROFEN 7.5-200 ) 1 Each Tablet 1 TAB PO PRN Q6HRS PRN for PAIN, #30 TAB 0 Refills Prov: ROGER VAUGHN MD 09/27/20 Dragon Disclaimer This chart was dictated in whole or in part using Voice Recognition software in a busy, high-work load, and often noisy Emergency Department environment. It may contain unintended and wholly unrecognized errors or omissions. Dragon Disclaimer This chart was dictated in whole or in part using Voice Recognition software in a busy, high-work load, and often noisy Emergency Department environment. It may contain unintended and wholly unrecognized errors or omissions. Dragon Disclaimer This chart was dictated in whole or in part using Voice Recognition software in a busy, high-work load, and often noisy Emergency Department environment. It may contain unintended and wholly unrecognized errors or omissions. ROGER VAUGHN MD Sep 27, 2020 22:06
[2020-09-27] MEDS ORDERED: KETOROLAC 60 MG/2 ML VIAL. IM ONE (22:30)
[2020-09-27] MEDS ORDERED: HYDR-1179 PO (23:33)
--- NOTE | 2020-09-27 23:44 | RAD ---
Study: XR KNEE _4 VIEWS WITH PATELLA_LT Indication: Injury. Comparison: None. Findings: No displaced fracture. Alignment is within normal limits. Maintained femorotibial compartment joint s pace height. On the axial view slight irregularity at the medial patella but without any abnormality on the additional images to suggest a nondisplaced fracture. No large knee joint effusion is apparent noting obliquity on the lateral view. Small quadriceps inser tion enthesophyte. Impression: No displaced fracture or traumatic malalignment. Electronically signed by: IVETH ALLEN MD (09/27/2020 11:41 PM) [facility]
[2020-09-27 23:58] VITALS: BP 140/90
== END 2020-09-27 23:58 | disposition home or self-care (01) ==
LOC: ER 21:47
DX: S83.92XA Sprain of unspecified site of left knee, initial encounter (principal); J45.909 Unspecified asthma, uncomplicated; X50.9XXA Other and unspecified overexertion or strenuous movements or postures, initial encounter; Y93.39 Activity, other involving climbing, rappelling and jumping off; Y92.89 Other specified places as the place of occurrence of the external cause; Y99.8 Other external cause status
CPT/HCPCS: 73564; 96372; 99283; J1885

== ENCOUNTER 2020-11-26 04:11 | Emergency (ER) | payer OTHER, MEDICAID ==
[~2020-11-26] VITALS: Ht 154.9 cm; Wt 110.4 kg
[~2020-11-26 04:11] MED LIST changes: +HYDR-1179 PO
[2020-11-26] MEDS ORDERED: IBUPROFEN 600 MG TABLET. PO ONE (04:45)
[2020-11-26] MEDS ORDERED: NEOMYCIN/POLYMYXIN/HC OTIC SUSPENSION 10ML BOTTLE. AS ONE (04:45)
[2020-11-26] MEDS ORDERED: NEOM10DR32 AS (04:52)
--- NOTE | 2020-11-26 04:52 | PHYS DOC ---
Past History Past Medical History: Asthma Past Surgical History: , Tubal ligation Smoking: Non-smoker Alcohol Use: Occasionally Drug Use: None General Adult EDM: Chief Complaint: EARACHE/EAR PAIN HPI: HPI: 40-year-old female presents with report of left-sided earache which started this yesterday but became worse upon waking this morning. Patient denies any fever or chills. Denies trauma. Denies known sick contacts. Patient does have some nasal congestion. Patient does report history of asthma. Patient reports she cleans her ears with Q-tips and sometimes "Musa pins ". Review of Systems: Review of Systems: Constitutional: Denies fever or chills Eyes: Denies redness or eye pain HENT: Denies nasal congestion or sore throat; reports left earache Respiratory: Denies cough or shortness of breath Cardiovascular: Denies chest pain or palpitations GI: Denies abdominal pain, nausea, or vomiting : Denies dysuria or hematuria Musculoskeletal: Denies back pain or joint pain Integument: Denies rash or skin lesions Neurologic: Denies headache, focal weakness or sensory changes Complete systems were reviewed and found to be within normal limits, except as documented in this note. Allergies: Allergies: Allergies Coded Allergies Type Severity Reaction Last Updated Verified No Known Drug Allergies 02/03/18 No Physical Exam: PE: Constitutional: Well developed, well nourished, no acute distress, non-toxic appearance HENT: Normocephalic, atraumatic, left external ear canal significantly swollen consistent for otitis externa Eyes: Conjunctiva normal, no discharge Neck: Normal range of motion, no tenderness, supple Lungs & Thorax: No respiratory distress, equal chest rise and fall Skin: Warm, dry, no erythema, no rash Extremities: No tenderness, ROM intact, no edema Neurologic: Alert and oriented X 3, no focal deficits noted Psychologic: Affect normal, judgment normal Current Patient Data: Vital Signs: Vital Signs Date Time Temp Pulse Resp B/P (MAP) Pulse Ox O2 Delivery O2 Flow Rate FiO2 11/26/20 04:17 98.8 91 118/76 (90) 99 Room Air EKG: EKG: [] Radiology/Procedures: Radiology/Procedures: [] Heart Score: C/O Chest Pain: N/A Course & Med Decision Making: Course & Med Decision Making Patient presents with HPI and physical exam consistent for otitis externa. Sylvie greenberg reports she uses Musa pins and Q-tips to clean her ears. Patient requiring ear wick placement. Corticosporin optic suspension applied to ear wick. Patient also given oral ibuprofen for pain. Patient stable for discharge with outpatient follow-up with PCP/ENT. ENT referral provided. Discussed findings and plan with patient, who acknowledges understanding and agreement. Dragon Disclaimer: Dragon Disclaimer: This electronic medical record was generated, in whole or in part, using a voice recognition dictation system. Departure Departure: Impression: Primary Impression: Otitis externa Qualified Codes: H60.502 - Unspecified acute noninfective otitis externa, left ear Disposition: HOME / SELF CARE / HOMELESS Condition: STABLE Referrals: DANIS CHIU MD (PCP) Patient Instructions: Otitis Externa, [id number] Additional Instructions: Follow with your family physician and/or an ENT. Dr. Mely Rodrigues ENT Address: [address] [place] [address] May also take over the counter Tylenol and/or Ibuprofen for pain of discomfort. Scripts Neomycin/Polymyxin B Sulf/Hc (RRGAQIUX-FFWAYOGYS-NA EAR SUSP) 10 Ml Drops.susp 4 DROP TID for Otitis Externa for 7 Days, #10 ML 0 Refills Prov: IRA PORTILLO DO 11/26/20 IRA PORTILLO DO Nov 26, 2020 04:52
[2020-11-26 05:00] VITALS: BP 120/72
== END 2020-11-26 05:04 | disposition home or self-care (01) ==
LOC: ER 04:11
DX: H60.502 Unspecified acute noninfective otitis externa, left ear (principal); R09.81 Nasal congestion; J45.909 Unspecified asthma, uncomplicated
CPT/HCPCS: 99283

== ENCOUNTER 2021-02-06 23:49 | Emergency (ER) | payer OTHER, MEDICAID ==
[~2021-02-06] VITALS: Ht 154.9 cm; Wt 110.4 kg
[~2021-02-06 23:49] MED LIST changes: +NEOM10DR32 AS
--- NOTE | 2021-02-07 00:04 | PHYS DOC ---
Past History Past Medical History: Asthma Past Surgical History: , Tubal ligation Smoking: Non-smoker Alcohol Use: Occasionally Drug Use: None Adult General Chief Complaint Chief Complaint: ABDOMINAL PAIN HPI HPI Patient is a 40-year-old female with a past medical history for asthma who presents with flank pain. States that she has left upper quadrant left flank pain that started about 4 hours ago, sharp in nature, 6 out of 10 with no radiation. States she never had anything like this before. Denies any recent traumas, travels, illnesses, fevers, chest pain, shortness of breath, nausea, vomiting, diarrhea, dysuria, hematuria, blood in stool. States has been eating and drinking normally for her. States he is making urine and stool normally for her with no blood in either. Denies any alcohol or drug use. She had not taken any medications for this except when ibuprofen earlier. Review of Systems Review of Systems Review of systems otherwise unremarkable except noted in HPI Allergies Allergies Allergies Coded Allergies Type Severity Reaction Last Updated Verified No Known Drug Allergies 02/03/18 No Physical Exam Physical Exam Constitutional: Well developed, well nourished, no acute distress, non-toxic appearance. [] HENT: Normocephalic, atraumatic, Eyes: PERRLA, EOMI, conjunctiva normal, no discharge. [] Neck: Normal range of motion, no tenderness, supple, no stridor. [] Cardiovascular:Heart rate regular rhythm, no murmur [] Lungs & Thorax: Bilateral breath sounds clear to auscultation [] Abdomen: soft, no tenderness, no masses, no pulsatile masses. [] Skin: Warm, dry, no erythema, no rash. [] Back: no CVA tenderness. [] Extremities: No tenderness, ROM intact, no edema. [] Neurologic: Alert and oriented X 3, no focal deficits noted. [] Psychologic: Affect normal, judgement normal, mood normal. [] EKG EKG [] Radiology/Procedures Radiology/Procedures [] PQRS Compliance Statement: One or more of the following individualized dose reduction techniques were utilized for this examination: 1. Automated exposure control 2. Adjustment of the mA and/or kV according to patient size 3. Use of iterative reconstruction technique CT ABDOMEN+PELVIS WO Clinical Indication: Reason: flank pain / Spl. Instructions: / History: Comparison: None. Technique: Helical CT imaging of the abdomen and pelvis is performed without IV or oral contrast. Findings: Evaluation of solid organs and bowel is limited without oral and IV contrast, decreasing sensitivity for detection of pathology. Lung bases are clear. Cardiac size normal. The liver, gallbladder, spleen, pancreas, adrenal glands, abdominal aorta, and kidneys are normal. The stomach contains fluid. There is no dilated small bowel. The appendix is normal. There is prominent intramural fat of the terminal ileum, may be sequela of prior inflammation. There is prominent intramural fat of the sigmoid colon, may be sequela of prior inflammation. No colon wall thickening is seen. No abdominal adenopathy or free fluid. Uterus and ovaries are unremarkable. Urinary bladder is decompressed accentuating the wall thickness. No pelvic free fluid. There is moderate subcutaneous induration of the patient's pannus along a skin fold, image 118. No acute bone abnormality. Bilateral inguinal lymph nodes may be reactive. IMPRESSION: No acute abdominal or pelvic abnormality. No obstructive uropathy. Electronically signed by: Robel Bell MD (02/07/2021 1:02 AM) [facility] Heart Score C/O Chest Pain: No Risk Factors: Risk Factors: DM, Current or recent (<one month) smoker, HTN, HLP, family history of CAD, obesity. Risk Scores: Risk Factors: DM, Current or recent (<one month) smoker, HTN, HLP, family history of CAD, obesity. Course & Med Decision Making Course & Med Decision Making Patient is a 40-year-old female who presents with left flank pain Vital signs not concerning. Physical exam noted above. Patient placed on monitor with IV access established. Patient denies need for pain or nausea medicine at this time. Laboratory analysis not concerning. Negative . Urinalysis not suggestive of UTI. CT of the abdomen pelvis with no acute abdomen findings with suggestion of previous possible prior inflammation but otherwise unremarkable. On reassessment patient stated she was feeling well, symptoms had resolved and she was ready to be discharged home. Discussed all findings with patient. Advised to follow-up on Tuesday with primary care physician. Gave strict return precautions to the ED. Patient grateful, verbalized understanding and agreed with plan of discharge. [] Dragon Disclaimer Dragon Disclaimer This electronic medical record was generated, in whole or in part, using a voice recognition dictation system. Departure Departure: Impression: Primary Impression: Flank pain Disposition: HOME / SELF CARE / HOMELESS Condition: GOOD Referrals: DANIS CHIU MD (PCP) Patient Instructions: Abdominal Pain (Nonspecific) Additional Instructions: Thank you for coming into the emergency department tonight and allowing us to take care of you. Please read all the attached information carefully to go back over some of the things we discussed. As discussed, please change up your diet over the next couple of days to being light and clear. Please follow-up with your primary care physician on Tuesday to update on ED visit and set up a follow- up visit. Please come back to the ED with new or concerning symptoms as discussed. SOHAM HUYNH MD Feb 07, 2021 00:04
[2021-02-07 00:25] VITALS: BP 133/54
[2021-02-07 00:30] LABS: BACTERIA,URINE 0 /HPF (0-FEW); BILIRUBIN,URINE NEG (NEG); CLARITY,URINE CLEAR; COLOR,URINE YELLOW; GLUCOSE,URINE NEG (NEG); NITRITE,URINE NEG (NEG); RBC,URINE 0 /HPF (0-2); SQUAMOUS EPITHELIAL CELL,UR OCC /LPF; UROBILINOGEN,URINE 0.2 mg/dL (0.2 mg/dL); WBC,URINE OCC /HPF (0-4)
[2021-02-07 00:41] LABS: BASO # 0.1 x10^3/uL (0.0-0.2); BASO % 2 % (0-3); EOS # 0.1 x10^3/uL (0.0-0.7); EOS % 2 % (0-3); HEMATOCRIT 35.3 % (36.0-47.0); HEMOGLOBIN 11.3 g/dL (12.0-15.5); LYMPH # 2.7 x10^3/uL (1.0-4.8); LYMPH % 37 % (24-48); MEAN CORPUSCULAR HEMOGLOBIN 26 pg (25-35); MEAN CORPUSCULAR HGB CONC 32 g/dL (31-37); MEAN CORPUSCULAR VOLUME 80 fL (79-100); MONO # 0.9 x10^3/uL (0.0-1.1); MONO % 13 % (0-9); NEUT # 3.5 x10^3uL (1.8-7.7); NEUT % 47 % (31-73); PLATELET COUNT 359 x10^3/uL (140-400); RED CELL DISTRIBUTION WIDTH 15.8 % (11.5-14.5); WHITE BLOOD COUNT 7.4 x10^3/uL (4.0-11.0)
[2021-02-07 00:48] LABS: ANION GAP 9 (6-14); BLOOD UREA NITROGEN 17 mg/dL (7-20); BUN/CREATININE RATIO 21 (6-20); CARBON DIOXIDE 25 mmol/L (21-32); CHLORIDE 104 mmol/L (98-107); CREATININE 0.8 mg/dL (0.6-1.0); GFR 97.1; GLUCOSE 118 mg/dL (70-99); POTASSIUM 4.3 mmol/L (3.5-5.1); SODIUM 138 mmol/L (136-145)
[2021-02-07 00:53] LABS: ALBUMIN 3.3 g/dL (3.4-5.0); ALBUMIN/GLOBULIN RATIO 0.8 (1.0-1.7); ALK PHOS 131 U/L (46-116); ALT (SGPT) 24 U/L (14-59); AST (SGOT) 18 U/L (15-37); LIPASE 137 U/L (73-393); TOTAL PROTEIN 7.5 g/dL (6.4-8.2)
[2021-02-07 00:57] LABS: TOTAL BILIRUBIN < 0.1 mg/dL (0.2-1.0)
--- NOTE | 2021-02-07 01:04 | RAD ---
PQRS Compliance Statement: One or more of the following individualized dose reduction techniques were utilized for this examinat ion: 1. Automated exposure control 2. Adjustment of the mA and/or kV according to patient size 3. Use of iterative reconstruction technique CT ABDOMEN+PELVIS WO Clinical Indication: Reason: flank pain / Spl. Instructions: / History: Comparison: None. Technique: Helical CT imaging of the abdomen and pelvis is performed without IV or oral contrast. Findings: Evaluation of solid organs and bowel is limited without oral and IV contrast, decreasing sensitivity for detection of pathology. Lung bases are clear. Cardiac size normal. The liver, gallbladder, spleen, pancreas, adrenal glands, abdominal aorta, and kidneys are normal. The stomach contains fluid. There is no dilated small bowel. The appendix is normal. There is promine nt intramural fat of the terminal ileum, may be sequela of prior inflammation. There is prominent int ramural fat of the sigmoid colon, may be sequela of prior inflammation. No colon wall thickening is s een. No abdominal adenopathy or free fluid. Uterus and ovaries are unremarkable. Urinary bladder is decompressed accentuating the wall thickness. No pelvic free fluid. There is moderate subcutaneous induration of the patient's pannus along a skin fold, image 118. No acute bone abnormality. Bilateral inguinal lymph nodes may be reactive. IMPRESSION: No acute abdominal or pelvic abnormality. No obstructive uropathy. Electronically signed by: Robel Bell MD (02/07/2021 1:02 AM) [facility]
== END 2021-02-07 01:17 | disposition home or self-care (01) ==
LOC: ER 23:49
DX: R10.12 Left upper quadrant pain (principal); J45.909 Unspecified asthma, uncomplicated; Z98.51 Tubal ligation status
CPT/HCPCS: 36415; 74176; 80053; 81001; 81025; 83690; 85025; 99284-25

== ENCOUNTER 2021-11-06 02:59 | Emergency (ER) | payer MEDICAID, OTHER ==
[~2021-11-06] VITALS: Ht 154.9 cm; Wt 112.2 kg
[2021-11-06] MEDS ORDERED: nyquil (03:16)
[2021-11-06] MEDS ORDERED: CORTISONE IM (03:16)
--- NOTE | 2021-11-06 03:21 | PHYS DOC ---
Past History Past Medical History: Asthma Past Surgical History: , Tubal ligation Smoking: Non-smoker Alcohol Use: Occasionally Drug Use: None General Adult EDM: Chief Complaint: CHEST PAIN HPI: HPI: ".. I ve been having chest pain all day... here on the Lt.... it a 01/20.. just will not go away.. movement of my Lt arm make it worse.. " Patient is a 41 year old female who presents with above hx and complaints left pectoral plane starting earlier in the morning. Patient states did not let up at work tonight. 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 Patient denies lifting anything heavy. No recent travel. No significant ill contacts. Had Moderna x3. Did not get flu vaccination for the season. Patient denies previous history of OK or angina. Patient does have a history of asthma. Does not smoke. Has had past surgeries C-sections x2. No history of pulmonary embolisms. No history of trauma. No history of fever or chills. No history of recent travel. No history immunosuppression. Patient's discomfort has been present for 2 days. Pain seems to be reproducible with movement. Patient normally follows with Dr.Tina Kelly. Review of Systems: Review of Systems: Constitutional: Denies fever or chills Eyes: Denies change in visual acuity HENT: Denies nasal congestion or sore throat Respiratory: Denies cough or shortness of breath Cardiovascular: Complains of chest pain GI: Denies abdominal pain, nausea, vomiting, bloody stools or diarrhea : Denies dysuria Musculoskeletal: Denies back pain or joint pain Integument: Denies rash Neurologic: Denies headache, focal weakness or sensory changes Endocrine: Denies polyuria or polydipsia Lymphatic: Denies swollen glands Psychiatric: Denies depression or anxiety Family History: Family History: Noncontributory to presentation. Current Medications: Current Meds: See nursing for home meds Allergies: Allergies: Allergies Coded Allergies Type Severity Reaction Last Updated Verified No Known Drug Allergies 11/06/21 No Physical Exam: PE: Constitutional: no acute distress, non-toxic appearance. [] HENT: Normocephalic, atraumatic, bilateral external ears normal, oropharynx moist, no oral exudates, nose normal. [] Eyes: PERRLA, EOMI, conjunctiva normal, no discharge. [] Neck: Normal range of motion, no tenderness, supple, no stridor. More than 17 inches Circumference. No JVD. No carotid bruits. Cardiovascular:Heart rate regular rhythm, no murmur. Tachycardia bedside monitor shows sinus rhythm. Lungs & Thorax: Bilateral breath sounds equal apex with scattered wheezes on auscultation []. Left pectoral tenderness on palpation and movement of left arm. Abdomen: Bowel sounds normal, soft, no tenderness, no masses, no pulsatile masses. Morbidly obese. Old scar Skin: Warm, dry, no erythema, no rash. [] Back: No tenderness, no CVA tenderness. [] Extremities: No tenderness, no cyanosis, no clubbing, ROM intact, +1 ankle edema. No cording. Neurologic: Alert and oriented X 3, normal motor function, normal sensory function, no focal deficits noted. [] Psychologic: Affect anxious judgement normal, mood normal. [] EKG: EKG: My interpretation EKG shows a sinus rhythm at 83 bpm []. No acute morphology. Time of EKG is 0309 hrs. Radiology/Procedures: Radiology/Procedures: [][place] [id number] IMAGING REPORT Signed PATIENT: STEPHANY HOGAN ACCOUNT: [id number] : 1980 LOCATION: ER AGE: 41 SEX: F EXAM STATUS: REG ER ORD. PHYSICIAN: ROGER VAUGHN MD REASON: cp PROCEDURE: PORTABLE CHEST 1V XR CHEST 1V Clinical History: Reason: cp / Spl. Instructions: / History: Technique: AP view of the chest was obtained at 11/06/2021 3:38 AM. Comparison: June 03, 2019. Findings: The heart is top normal limits in size. The pulmonary vessels appear normal. The lungs are clear. Impression: No evidence of an acute cardiopulmonary process. Electronically signed by: Marlo Savage III, MD (11/06/2021 3:57 AM) [facility] DICTATED AND SIGNED BY: MARLO SAVAGE III, MD DATE: 11/06/21 0356 CC: ROGER VAUGHN MD; CHRISTELLE KELLY DO ~ Heart Score: C/O Chest Pain: Yes HEART Score for Chest Pain: HEART Score for Chest Pain Response (Comments) Value History Slighlty/Non-Suspicious 0 ECG Normal 0 Age < 45 0 Risk Factors 1 or 2 Risk Factors 1 Troponin < Normal Limit 0 Total 1 Risk Factors: Risk Factors: DM, Current or recent (<one month) smoker, HTN, HLP, family history of CAD, obesity. Risk Scores: Score 0 - 3: 2.5% MACE over next 6 weeks - Discharge Home Score 4 - 6: 20.3% MACE over next 6 weeks - Admit for Clinical Observation Score 7 - 10: 72.7% MACE over next 6 weeks - Early Invasive Strategies Course & Med Decision Making: Course & Med Decision Making Pertinent Labs and Imaging studies reviewed. (See chart for details) Patient requesting discharge. Patient to call and get an outpatient follow-up stress testing with cardiology of Dr. Robin park. Patient is taking daily baby aspirin or half an aspirin with food until follow-up. Return if any concerns. Tylenol and ibuprofen for pectorial l tenderness. Impression: 1. Chest Pain- Atypical 2. Hx. Asthma 3. Obesity BMI 46.7 [] Dragon Disclaimer: Dragon Disclaimer: This electronic medical record was generated, in whole or in part, using a voice recognition dictation system. Departure Departure: Referrals: CHRISTELLE KELLY DO (PCP) Dragon Disclaimer This chart was dictated in whole or in part using Voice Recognition software in a busy, high-work load, and often noisy Emergency Department environment. It may contain unintended and wholly unrecognized errors or omissions. ROGER VAUGHN MD November 06, 2021 03:21
[2021-11-06] MEDS ORDERED: ASPIRIN CHEWABLE 81 MG TABLET. PO ONE (03:30)
[2021-11-06] MEDS ORDERED: IV RINGERS SOLUTION,LACTATED 1,000 ML IV SCH (03:30)
--- NOTE | 2021-11-06 03:59 | RAD ---
XR CHEST 1V Clinical History: Reason: cp / Spl. Instructions: / History: Technique: AP view of the chest was obtained at 11/06/2021 3:38 AM. Comparison: June 03, 2019. Findings: The heart is top normal limits in size. The pulmonary vessels appear normal. The lungs are clear. Impression: No evidence of an acute cardiopulmonary process. Electronically signed by: Jerod Walls III, MD (11/06/2021 3:57 AM) [facility]
[2021-11-06 04:38] LABS: BASO # 0.1 x10^3/uL (0.0-0.2); BASO % 1 % (0-3); EOS % 1 % (0-3); HEMATOCRIT 36.5 % (36.0-47.0); HEMOGLOBIN 11.7 g/dL (12.0-15.5); LYMPH # 1.8 x10^3/uL (1.0-4.8); LYMPH % 24 % (24-48); MEAN CORPUSCULAR HEMOGLOBIN 27 pg (25-35); MEAN CORPUSCULAR HGB CONC 32 g/dL (31-37); MEAN CORPUSCULAR VOLUME 83 fL (79-100); MONO # 0.6 x10^3/uL (0.0-1.1); MONO % 8 % (0-9); NEUT # 5.1 x10^3uL (1.8-7.7); NEUT % 67 % (31-73); PLATELET COUNT 275 x10^3/uL (140-400); RED CELL DISTRIBUTION WIDTH 16.9 % (11.5-14.5); WHITE BLOOD COUNT 7.7 x10^3/uL (4.0-11.0)
[2021-11-06 04:48] LABS: ANION GAP 9 (6-14); BLOOD UREA NITROGEN 17 mg/dL (7-20); CALCIUM 8.6 mg/dL (8.5-10.1); CARBON DIOXIDE 24 mmol/L (21-32); CHLORIDE 103 mmol/L (98-107); GFR 74.7; GLUCOSE 118 mg/dL (70-99); POTASSIUM 3.9 mmol/L (3.5-5.1); SODIUM 136 mmol/L (136-145)
[2021-11-06 05:03] LABS: ALBUMIN 2.6 g/dL (3.4-5.0); ALK PHOS 112 U/L (46-116); ALT (SGPT) 27 U/L (14-59); AST (SGOT) 11 U/L (15-37); DIRECT BILIRUBIN < 0.1 mg/dL (0.0-0.2); LIPASE 120 U/L (73-393); MAGNESIUM 1.8 mg/dL (1.8-2.4); TOTAL BILIRUBIN 0.2 mg/dL (0.2-1.0)
[2021-11-06] MEDS ORDERED: KETOROLAC 30 MG/ML VIAL. IVP ONE (06:15)
[2021-11-06 06:35] VITALS: BP 134/80
[2021-11-06 07:28] LABS: BARBITURATES NEG (NEG); BENZODIAZEPINES NEG (NEG); CANNABINOIDS NEG (NEG); COCAINE NEG (NEG); METHADONE NEG (NEG); OPIATES NEG (NEG); PHENCYCLIDINE NEG (NEG)
[2021-11-06 07:33] LABS: AMPHETAMINE/METHAMPHETAMINE NEG (NEG)
[2021-11-06 07:38] LABS: CLARITY,URINE CLOUDY; COLOR,URINE YELLOW; GLUCOSE,URINE NEG (NEG); NITRITE,URINE NEG (NEG)
[2021-11-06 07:39] LABS: BACTERIA,URINE MOD /HPF (0-FEW); RBC,URINE 0 /HPF (0-2); SQUAMOUS EPITHELIAL CELL,UR MANY /LPF
== END 2021-11-06 07:05 | disposition home or self-care (01) ==
LOC: ER 02:59
DX: R07.89 Other chest pain (principal); J45.909 Unspecified asthma, uncomplicated; E66.9 Obesity, unspecified; Z68.42 Body mass index [BMI] 45.0-49.9, adult; Z98.890 Other specified postprocedural states; Z98.51 Tubal ligation status
CPT/HCPCS: 36415; 71045; 80048; 80076; 80307; 81001; 82550; 83690; 83735; 83880; 84443; 84484; 85025; 85379; 85610; 85730; 87086; 93005; 96361; 96374; 99285; J1885; J7120